=== PATIENT | male | born 1980 | race Caucasian/White ===

== ENCOUNTER 2021-07-12 15:25 | Emergency (ER) | payer OTHER, SELFPAY ==
[2021-07-12 16:48] VITALS: BP 132/87; PULSE 91; RESP 20; TEMP 36.2; O2SAT 96
--- NOTE | 2021-07-12 18:32 | ED.URI ---
HPI - URI/Sore Throat General Chief Complaint: Upper Respiratory Infection Stated Complaint: Cough/Rash/Sneezing Time Seen by Provider: 07/12/21 18:32 Source: patient, RN notes reviewed and old records reviewed Mode of arrival: ambulatory Limitations: no limitations History of Present Illness HPI Narrative: 40 year old male presents to [facility] care with complaints of cough, sneezing, watery eyes, sore throat and rash to his face on cheeks for the past 4 days. Patient reports that he has been taking Tussin DM for his cough and using cough drops. Patient does have history of tobacco abuse of 1ppd for 25 years. Patient states that he did have COVID in 2020 but has not had Coid vaccination or flu vaccine.patient denies any acute fevers, no chills or sweats or any body aches. He denies any acute dyspnea with no tachypnea noted, SAO2 96% on room air. Related Data Home Medications Medication Instructions Recorded Confirmed amlodipine 5 mg PO DAILY 07/12/21 07/12/21 cyanocobalamin (vitamin B-12) 1,000 mcg IM WEEKLY 07/12/21 07/12/21 duloxetine 60 mg PO DAILY 07/12/21 07/12/21 lisinopril-hydrochlorothiazide 1 tablet PO DAILY 07/12/21 07/12/21 omeprazole 40 mg PO DAILY 07/12/21 07/12/21 triamcinolone acetonide 1 applic TOPICAL BID 07/12/21 07/12/21 Allergies Allergy/AdvReac Type Severity Reaction Status Date / Time latex Allergy Intermediate Itching Verified 07/12/21 17:24 Review of Systems Review of Systems: CONSTITUTIONAL: Denies fever, chills, or sweats. EYES: Denies visual changes, redness, or discharge. ENT:positive for rhinorrhea, congestion, sore throat, manager study otalgia. CARDIOVASCULAR: Denies chest pain, palpitations, or edema. RESPIRATORY:Positive for cough no dyspnea. GASTROINTESTINAL: Denies abdominal pain, nausea, vomiting, or diarrhea. GENITOURINARY: Denies dysuria or hematuria. SKIN: Facial rash with itching. MUSCULOSKELETAL: Denies back pain, joint pain, or myalgia. NEUROLOGIC: Denies headache, numbness, or weakness. PSYCHIATRIC: Positive for history of anxiety or depression. All systems reviewed & are unremarkable except as noted in HPI and below PMFSH Comments At time of signature, agree with nursing past medical, surgical, social and family history. There is no relevant family history pertinent to the presenting complaint Exam Narrative: GENERAL: Well-appearing, well-nourished, and in no acute distress. HEAD: Normocephalic, atraumatic. EYES: PERRLA and EOMI. ENT: Nares red with clear rhinorrhea no epistaxis. Mucous membranes moist.TM's normal with good light reflex, throat red with no exudates or lesions, tonsil red and enlarged. NECK: Supple.lymphadenopathy CHEST: faint late expiratory wheezes on auscultation. No respiratory distress.cough with SAO2 96% on room air HEART: Regular rate and rhythm. No murmur heard. Normal peripheral pulses. ABDOMEN: Soft, nontender, nondistended, normal active bowel sounds. EXTREMITIES: Normal range of motion. No edema. SKIN: Warm, dry, fine red rash noted on cheeks minimally itching NEURO: No focal deficits. Alert and oriented x3. Course Vital Signs Vital signs: Vital Signs Temperature 36.2 C L 07/12/21 16:48 Pulse Rate 91 07/12/21 16:48 Respiratory Rate 20 07/12/21 16:48 Blood Pressure 132/87 07/12/21 16:48 Pulse Oximetry 96 07/12/21 16:48 Temperature 36.2 C L 07/12/21 16:48 Pulse Rate 91 07/12/21 16:48 Respiratory Rate 20 07/12/21 16:48 Blood Pressure 132/87 07/12/21 16:48 Pulse Oximetry 96 07/12/21 16:48 MDM - URI/Sore Throat Differential Diagnosis Differential diagnosis: Likely upper respiratory infection, sinusitis, viral infection, bronchitis, pharyngitis and other (tonsillitis) Medical Records Attestation: I reviewed the patient's medical records. Lab Data Attestation: I reviewed the patient's lab results. Lab results narrative: Strep screen negative Labs: Strep Screen Presumptive Negative
== END 2021-07-12 18:55 | disposition home or self-care (01) ==
PROVIDERS: Emergency Provider Registered Nurse; PCP Internal Medicine Geriatric Medicine
DX: J40 Bronchitis, not specified as acute or chronic (principal); J03.90 Acute tonsillitis, unspecified; I10 Essential (primary) hypertension; K21.9 Gastro-esophageal reflux disease without esophagitis
CPT/HCPCS: 87081; 87880; 99213; G0463

== ENCOUNTER 2021-07-19 08:28 | Emergency (ER) | payer OTHER, SELFPAY ==
[2021-07-19 08:35] VITALS: BP 138/95; PULSE 92; RESP 18; TEMP 36.2; O2SAT 95
--- NOTE | 2021-07-19 08:35 | ED.SKABFB ---
HPI - Skin/Abscess/Foreign Bdy General Chief complaint: Skin/Abscess/Foreign Body Stated complaint: Rash on face Time Seen by Provider: 07/19/21 08:35 Source: patient and RN notes reviewed History of Present Illness HPI narrative: Patient is a 40-year-old male who presents the urgent care with complaints of a rash to the face and chest. Patient states that it started around [place] time and he came into the facility and was diagnosed with tonsillitis and bronchitis. Patient states that he was given amoxicillin and steroids. Patient states he was also placed on Flagyl cream recently on a teledoc call. No other acute complaints. No acute distress noted. Patient aware of the plan of care. Some parts of this dictation were generated by voice recognition software and may contain typographical and/or grammatical inaccuracies. Related Data Home Medications Medication Instructions Recorded Confirmed amlodipine 5 mg PO DAILY 07/12/21 07/19/21 cyanocobalamin (vitamin B-12) 1,000 mcg IM WEEKLY 07/12/21 07/19/21 duloxetine 60 mg PO DAILY 07/12/21 07/19/21 lisinopril-hydrochlorothiazide 1 tablet PO DAILY 07/12/21 07/19/21 omeprazole 40 mg PO DAILY 07/12/21 07/19/21 metronidazole 1 applic TOPICAL DAILY 07/19/21 07/19/21 Allergies Allergy/AdvReac Type Severity Reaction Status Date / Time latex Allergy Intermediate Itching Verified 07/19/21 08:52 Review of Systems Review of Systems: CONSTITUTIONAL: Denies fever, chills, or sweats. EYES: Denies visual changes, redness, or discharge. ENT: Denies rhinorrhea, congestion, sore throat, or otalgia. CARDIOVASCULAR: Denies chest pain, palpitations, or edema. RESPIRATORY: Denies cough or dyspnea. GASTROINTESTINAL: Denies abdominal pain, nausea, vomiting, or diarrhea. GENITOURINARY: Denies dysuria or hematuria. SKIN: Reports of an itchy rash to the face and chest MUSCULOSKELETAL: Denies back pain, joint pain, or myalgia. NEUROLOGIC: Denies headache, numbness, or weakness. All other systems reviewed are negative, except as documented in HPI. PMFSH Comments At the time of my signature, I reviewed and agree with the nursing past medical, surgical, social, and family history. There is no relevant family history pertinent to the patient complaint. Exam Narrative: GENERAL: This is a well-nourished, well-developed patient, in no apparent distress. HEAD: normocephalic, atraumatic. EYES: PERRL. Sclera clear/white. Vision is grossly intact. Mild bilateral edema/erythema to upper eyelids EARS: External ears normal NOSE: External nose normal with no obvious nasal discharge, nares without redness, no rhinorrhea. THROAT: Mucous membranes moist NECK: Neck supple, CARDIOVASCULAR: Regular rate and rhythm without murmurs, gallops, or rubs. RESPIRATORY: Clear to auscultation. Breath sounds equal bilaterally. No wheezes, rales, or rhonchi. SKIN: Blanching scattered raised dermatitis/urticaria noted to the face, papular erythemic pruritic dermatitis noted to the chest NEURO: awake, alert, and oriented to person, place and time. There were no obvious focal neurologic abnormalities. EXTREMITIES: No clubbing, cyanosis, or edema. Course Course Level of Care: Express Care Visit Vital Signs Vital signs: Vital Signs Temperature 97.1 F L 07/19/21 08:35 Pulse Rate 92 07/19/21 08:35 Respiratory Rate 18 07/19/21 08:35 Blood Pressure 138/95 H 07/19/21 08:35 Pulse Oximetry 95 07/19/21 08:35 Temperature 97.1 F L 07/19/21 08:35 Pulse Rate 92 07/19/21 08:35 Respiratory Rate 18 07/19/21 08:35 Blood Pressure 138/95 H 07/19/21 08:35 Pulse Oximetry 95 07/19/21 08:35 Reviewed-patient is informed that they may have pre-hypertension or hypertension based on a blood pressure reading in the department. I recommend the patient call the primary care provider listed on their discharge instructions or a physician of their choice this week to arrange follow-up for further evaluation of possible pre-hyp
== END 2021-07-19 09:00 | disposition home or self-care (01) ==
PROVIDERS: Emergency Provider Nurse Practitioner Family; PCP Internal Medicine Geriatric Medicine
DX: L50.9 Urticaria, unspecified (principal); I10 Essential (primary) hypertension; K21.9 Gastro-esophageal reflux disease without esophagitis
CPT/HCPCS: 99213; G0463